=== PATIENT | female | born 1940 | race Caucasian/White ===

== ENCOUNTER 2018-01-07 20:11 | Emergency (ER) | payer MEDICARE, BC ==
[2018-01-07 20:35] LABS: Bilirubin Negative (Negative); Blood, Urine Negative (Negative); Clarity CLEAR (Clear); Glucose, Urine (Dipstick) Negative (Negative); Leukocyte Negative (Negative); Nitrite Negative (Negative); Protein, Urine (Dipstick) Negative (Neg-Trace); Specific Gravity, Urine 1.009 (1.002-1.036); pH, Urine 7.5 (5.0-9.0)
[2018-01-07 22:02] LABS: #Eosinphils 0.2 thou/uL (0.0-0.7); #Lymphocytes 2.5 thou/uL (1.20-3.40); #Monocytes 0.8 thou/uL (0.11-0.59); #Neutrophils 6.6 thou/uL (1.40-6.50); %Basophils 0.5 % (0.0-1.0); %Eosinophils 1.7 % (0.0-10.0); %Lymphocytes 24.5 % (21.0-51.0); %Neutrophils 65.4 % (42.0-75.0); Hemoglobin 14.2 g/dL (12.0-16.0); Mean Corpuscular HGB CONC 34.7 g/dL (32.0-36.0); Mean Corpuscular Hemoglobin 29.7 pg (27.0-31.0); Mean Corpuscular Volume 85.6 fl (81.0-99.0); Mean Platelet Volume 7.1 fL (7.4-10.4); Platelet Count 95 thou/uL (130-400); Red Blood Cell (RBC) Count 4.78 mill/uL (4.20-5.40)
[2018-01-07 22:23] LABS: ALT (SGPT) 10 U/L (8-55); AST (SGOT) 19 U/L (5-34); Albumin 4.4 g/dL (3.4-4.8); Alkaline Phosphatase 56 U/L (40-150); Anion Gap 15 mmol/L (10-20); BUN (Urea Nitrogen) 12 mg/dL (9.8-20.1); Bilirubin, Total 0.6 mg/dL (0.2-1.2); Calc. Creatinine Clearance 0 mL/min (70-130); Carbon Dioxide 24 mmol/L (23-31); Chloride 97 mmol/L (98-107); Estimated GFR-MDRD 79; Globulin 2.6 g/dL (2.4-3.5); Glucose 113 mg/dL (83-110); Lipase 38 U/L (8-78); Potassium 3.5 mmol/L (3.5-5.1); Sodium 132 mmol/L (136-145)
--- NOTE | 2018-01-07 22:55 | CT ---
CT ABDOMEN AND PELVIS WITHOUT CONTRAST: 01/07/18 Multiple axial tomograms obtained through the abdomen and pelvis without IV enhancement. INDICATIONS: Left abdominal pain. Lung bases are clear of infiltrate. There is a calcified granuloma in the anterior right lung base. The liver, spleen, and pancreas unremarkable. Adrenal glands unremarkable. Review of the kidneys shows no evidence of hydronephrosis. The ureters are normal caliber. There is a small calcification adjacent to the mid left ureter. This is felt to lie outside the ureters. There is no evidence of ureteral dilatation. There is an adjacent larger calcification measuring 1.2 cm abu tting the left medial psoas muscle probably a calcified lymph node. Small bowel loops appear of normal caliber. Scattered stool throughout the colon. There is diverticul osis of the left colon and sigmoid. There appears to be luminal narrowing and mural thickening in thi s region of the sigmoid and there may be some early inflammatory change which could represent early d iverticulitis. There is no evidence of extraluminal fluid or abscess. Aorta is normal caliber. IMPRESSION: 1. No evidence of urinary tract calculus. A tiny 2 mm calcification adjacent to the mid left ure ter is felt to lie outside the ureter. If there is hematuria or clinical signs suggesting ureteral ca lculus, this could be further evaluated with IVP. 2. Diffuse sigmoid diverticulosis. There are findings that may represent early diverticulitis. N o significant inflammatory process and no evidence of fluid or abscess collection. POS: [facility]
== END 2018-01-07 23:26 | disposition home or self-care (01) ==
LOC: ERS 20:11
DX: K57.32 Diverticulitis of large intestine without perforation or abscess without bleeding (principal); E11.9 Type 2 diabetes mellitus without complications; E78.5 Hyperlipidemia, unspecified; I10 Essential (primary) hypertension; Z79.899 Other long term (current) drug therapy; Z79.84 Long term (current) use of oral hypoglycemic drugs
CPT/HCPCS: 36415; 74176; 80053; 81003; 83690; 85025

== ENCOUNTER 2018-03-03 13:32 | Outpatient (CLI) | payer MEDICARE, BC | END 2018-03-03 13:33 | disposition home or self-care (01) | LOC: BICMAMMO 13:32 | PROVIDERS: ATTEND Obstetrics & Gynecology | DX: Z12.31 Encounter for screening mammogram for malignant neoplasm of breast (principal) | CPT/HCPCS: 77063; 77067 ==

== ENCOUNTER 2019-04-01 13:41 | Observation (INO) | payer MEDICARE, BC ==
[2019-04-01 14:35] LABS: #Basophils 0.1 thou/uL (0.0-0.2); #Eosinphils 0.1 thou/uL (0.0-0.7); #Monocytes 0.5 thou/uL (0.11-0.59); #Neutrophils 4.7 thou/uL (1.40-6.50); %Basophils 0.9 % (0.0-1.0); %Eosinophils 1.3 % (0.0-10.0); %Lymphocytes 27.1 % (21.0-51.0); %Monocytes 7.2 % (0.0-10.0); %Neutrophils 63.5 % (42.0-75.0); Hemoglobin 13.8 g/dL (12.0-16.0); Mean Corpuscular HGB CONC 34.2 g/dL (32.0-36.0); Mean Corpuscular Hemoglobin 29.9 pg (27.0-31.0); Mean Corpuscular Volume 87.5 fL (78.0-98.0); Mean Platelet Volume 5.8 fL (7.4-10.4); Platelet Count 398 thou/uL (130-400); RBC Distribution Width 12.1 % (11.5-14.5); Red Blood Cell (RBC) Count 4.62 mill/uL (4.20-5.40); White Blood Cell (WBC) Count 7.4 thou/uL (4.8-10.8)
--- NOTE | 2019-04-01 14:53 | RAD ---
Exam: Chest one view HISTORY:Patient is not feeling well. Comparison: 08/29/2013 FINDINGS: Cardiac silhouette: Normal Aorta: Atherosclerosis of the aortic knob Pulmonary vessels: Normal Costophrenic angles: Clear LUNGS: No masses or consolidation. Pneumothorax: None Osseous abnormalities: None IMPRESSION: No acute cardiopulmonary process. Atherosclerosis.
[2019-04-01 15:01] LABS: ALT (SGPT) 9 U/L (8-55); AST (SGOT) 19 U/L (5-34); Albumin 4.2 g/dL (3.4-4.8); Alkaline Phosphatase 60 U/L (40-150); Anion Gap 15 mmol/L (10-20); BUN (Urea Nitrogen) 12 mg/dL (9.8-20.1); Bilirubin, Total 0.3 mg/dL (0.2-1.2); Calc. Creatinine Clearance 0 mL/min (70-130); Calcium 9.3 mg/dL (7.8-10.44); Carbon Dioxide 22 mmol/L (23-31); Chloride 101 mmol/L (98-107); Estimated GFR-MDRD 78; Globulin 2.2 g/dL (2.4-3.5); Glucose 142 mg/dL (83-110); Lipase 33 U/L (8-78); Potassium 3.4 mmol/L (3.5-5.1); Protein, Total 6.4 g/dL (6.0-8.3); Sodium 135 mmol/L (136-145)
[2019-04-01] MEDS ORDERED: Aspirin Chewable 81 MG TAB ONE (15:01)
[2019-04-01] MEDS ORDERED: Nitroglycerin 0.4 MG TAB (25 Tab Bottle) PO PRN (17:36)
[2019-04-01] MEDS ORDERED: Ondansetron PF 4 MG/2 ML Vial IVP PRN (17:39)
[2019-04-01] MEDS ORDERED: Acetaminophen 500 MG TAB PO PRN (17:39)
[2019-04-01] MEDS ORDERED: diphenhydrAMINE 25 MG CAP PO PRN (17:39)
[2019-04-01] MEDS ORDERED: hydrALAZINE 20 MG/ML VIAL SLOW IVP PRN (17:39)
[2019-04-01] MEDS ORDERED: Ondansetron ODT 4 MG TAB PO PRN (17:39)
[2019-04-01 18:03] VITALS: BMI 27.7
[2019-04-01 18:30] LABS: Troponin I Less than 0.010 ng/mL (< 0.028)
[2019-04-01] MEDS: Sodium Chloride 0.9% 1,000 ML IV SCH (20:09)
[2019-04-01] MEDS ORDERED: Atorvastatin Calcium 10 MG TAB PO SCH (21:00)
[2019-04-01] MEDS ORDERED: Temazepam 15 MG CAP PO SCH (21:00)
--- NOTE | 2019-04-01 21:28 | HP ---
CHIEF COMPLAINT: Chest pain. HISTORY OF PRESENT ILLNESS: Ms. Zamarripa is a very pleasant 78-year-old female with past medical history significant for type 2 diabetes mellitus, hypertension, hyperlipidemia, who presented to the hospital today after experiencing an episode of chest pressure. The patient states that over the last several weeks she has had some worsening fatigue. She has felt generally unwell and unsteady on her feet, although she has had no focal symptoms. She has had no dizziness or lightheadedness. No specific weakness of any kind. The patient states that she has had some back trouble over the past month or so that occurs after she weedeats the yard outside. She has seen a chiropractor for this, but the pain reoccurs when she does yard work. In any case, today she had some chest pressure that worried her. She had no associated nausea or vomiting. No associated shortness of breath, dizziness, or diaphoresis. Given her risk factor, she thought it was a good idea to come to the hospital to get checked out. On arrival to the emergency department, workup has included a troponin which was negative. She did have an EKG, which revealed a new left bundle branch block when compared to an EKG from about 5 years ago. The patient is currently chest pain free and is chatting with her best friend and family members. The chest pain did relieve on its own. The patient has not formally seen a spring repairer helper hand before. Many years ago, she did have a stress test in Dr. Marquis's office. She recently saw him in the office with her best friend who is a patient of his, and wanted to get established with a spring repairer helper hand and he did give her his card to make an appointment. She has had no recent cardiac workup or any history of coronary artery disease. REVIEW OF SYSTEMS: The patient states that she has had no recent illnesses or fevers. No blood in her urine or stool. She does have a problem with chronic constipation, but did have a bowel movement yesterday. Otherwise, 12-point review of systems performed is negative except that stated above. PAST MEDICAL HISTORY: Type 2 diabetes mellitus, GERD, diverticulosis, irritable bowel syndrome, hyperlipidemia, hypertension, history of staph infection and complications after childbirth back in 1964. PAST SURGICAL HISTORY: Cholecystectomy, hysterectomy, and left oophorectomy. She did have exploratory surgery in 1964 after childbirth. History of breast biopsy 1998, history of colonoscopy which was reportedly negative in 2017. SOCIAL HISTORY: The patient has no history of smoking. She does not drink alcohol or use illicit drugs. ALLERGIES: NO KNOWN DRUG ALLERGIES. HOME MEDICATIONS: 1. Calcium with vitamin D3 supplement one tablet daily. 2. Fenofibrate 145 mg tablet one tablet p.o. daily. 3. Christi Allergy 60 mg tablet one tablet daily. 4. Daily multivitamin. 5. Nifedipine 60 mg tablet one tablet p.o. daily. 6. Nexium 40 mg capsule one capsule daily. 7. Metformin 500 mg tablet one tablet daily. 8. Restoril 30 mg tablet one tablet p.o. at bedtime. 9. Valsartan/hydrochlorothiazide 320/25 one tablet p.o. daily. PHYSICAL EXAMINATION: VITAL SIGNS: Blood pressure 149/83, pulse is 77, respirations 18, O2 saturation is 96% on room air, temperature 98.1. GENERAL: This is a well-appearing female, resting comfortably in bed, in no acute distress. HEENT: Head is atraumatic and normocephalic. Mucous membranes are moist. NECK: Trachea is midline. Supple. No lymphadenopathy. No JVD. CV: S1 and S2. Regular rate and rhythm. No appreciable murmurs, rubs, or gallops. LUNGS: Regular respiratory rate and pattern. Clear to auscultation bilaterally. ABDOMEN: Positive bowel sounds. Soft, nontender. EXTREMITIES: No edema. Warm, well perfused. NEUROLOGIC: Cranial nerves 2 through 12 are grossly intact. The patient is nonfocal. SKIN: Warm and dry. No rashes or lesions. LABORATORY DATA: White blood cell count 7.4, hemoglobin 13.8, hematocrit 40.4, platelet count is 398. Sodium 135, potassium 3.4, creatinine 0.72, BUN is 12, calcium 9.3, AST 19, ALT 9, alkaline phosphatase today 60. Troponin is negative x2. Lipase is 33. ASSESSMENT: 1. Chest pain, atypical, in a patient with multiple risk factors, acute coronary syndrome ruled out. 2. New left bundle-branch block/abnormal EKG. 3. Type 2 diabetes mellitus. 4. Hypertension. 5. Hyperlipidemia. 6. Musculoskeletal back pain. 7. History of diverticulosis/diverticulitis, stable. 8. Gastroesophageal reflux disease. PLAN: Given the patient's risk factors and new finding of left bundle branch block, we will further risk stratify this patient with a nuclear stress test to be performed tomorrow. The patient states that her diabetes has been well under control and last A1c was 6.2%, but we will obtain an A1c tomorrow as well as a fasting lipid panel. We will also obtain a thyroid panel given her complaints of fatigue over the last month or so. Certainly, if stress test shows any abnormality, we will consult Cardiology for further recommendations. We will start statin therapy in this patient as she is a diabetic, as well as a daily aspirin. Further recommendations will be based on findings of noninvasive testing. Job ID: [id number]
[2019-04-01 21:37] LABS: Troponin I Less than 0.010 ng/mL (< 0.028)
[2019-04-01] MEDS: Temazepam 15 MG CAP PO SCH (23:02)
[2019-04-02 05:33] LABS: Hemoglobin A1c 5.8 % (4.0-6.0)
[2019-04-02 05:52] LABS: Cardiac Risk 3.2 (Less than 4.5)
[2019-04-02 06:07] LABS: Free T4 (Free Thyroxine) 0.97 ng/dL (0.70-1.48); Thyroid Stimulating Hormone 1.9748 uIU/mL (0.35-4.94)
[2019-04-02] MEDS: Sodium Chloride 0.9% 1,000 ML IV SCH ×2 (07:42→17:34)
[2019-04-02] MEDS: Aspirin 81 mg Enteric Coated Tablet PO SCH (07:54)
[2019-04-02] MEDS: Valsartan 80 MG TAB PO SCH (07:55)
[2019-04-02] MEDS: Hydrochlorothiazide 25 MG TAB PO SCH (07:55)
[2019-04-02] MEDS ORDERED: ADENOSINE 60 MG/20 ML VIAL ONE (09:58)
[2019-04-02] MEDS ORDERED: metFORMIN 500 MG TAB PO SCH (12:00)
--- NOTE | 2019-04-02 12:04 | NM ---
Radionucleotide stress and rest myocardial perfusion scan with CT attenuation correction and SPECT im aging Left ventricular wall motion evaluation and ejection fraction HISTORY: Chest pain. FINDINGS: Adenosine protocol. Heterogeneous uptake of radiotracer throughout the left ventricular joie cardium. Area, moderate-sized decreased uptake involving the apex. No significant change from stress to rest. QGS analysis of gated SPECT images shows no focal wall motion abnormalities, including the apex. Ejec tion fraction calculated at 53%. IMPRESSION: Probably normal myocardial perfusion scan. Possible area of scar at the apex. No evidence of ischemia. Borderline ejection fraction 53%.
--- NOTE | 2019-04-02 15:42 | CT ---
CT PULMONARY ANGIOGRAM WITH IV CONTRAST AND 3D POSTPROCESSING: Date: 04/02/19 HISTORY: Chest pain. FINDINGS: There is good contrast opacification of the pulmonary arterial vasculature without filling defects to suggest pulmonary embolism. There are vascular calcifications without evidence of aneurysmal dilatat ion of the thoracic aorta. A 3 mm peripheral lung nodule is stable since 08/29/13. No pleural or oksana cardial effusions are seen. No pneumothoraces or focal areas of consolidation are identified. The 5 m m peripheral nodule in the right lower lobe is stable. The 5 mm peripheral nodule in the right upper lobe is also stable. There are degenerative changes in the spine. There is a calcified granuloma in t he inferior aspect of the right middle lobe. Upper abdominal tomograms demonstrate postop changes of cholecystectomy and calcified granulomas in the liver and spleen. IMPRESSION: No CT evidence of pulmonary embolism. POS: [facility]
[2019-04-02] MEDS ORDERED: Communication Order-Pharmacy FS SCH (17:00)
[2019-04-02] MEDS ORDERED: Iopamidol 370 76% 100 ML VIAL ONE (17:05)
--- NOTE | 2019-04-02 17:38 | PDOC.HOSPP ---
- Subjective Encounter Date: 04/02/19 Encounter Time: 17:37 Subjective: Pt seen for followup re: chest pain. Feels better. - Objective Vital Signs & Weight: Vital Signs (12 hours) Temp Pulse Resp BP Pulse Ox 04/02/19 16:00 97.9 F 61 21 H 178/77 H 97 04/02/19 11:31 98.4 F 70 16 163/72 H 99 04/02/19 07:48 97.6 F 60 18 171/74 H 96 Weight Weight 132 lb 11.2 oz I&O: 04/01/19 04/02/19 04/03/19 06:59 06:59 06:59 Intake Total 240 900 Output Total 1300 Balance -1060 900 Result Diagrams: 04/01/19 14:27 04/01/19 14:27 Additional Labs: Labs and MARs reviewed by me. EKG Reviewed by me: Yes (Tele: NSR) ROS - Review of Systems Respiratory: denies: cough, shortness of breath, SOB with excertion, pleuritic pain, wheezing Cardiovascular: denies: chest pain, palpitations, orthopnea, paroxysmal noc. dyspnea, edema, light headedness - Medication Medications: Active Medications Generic Name Dose Route Start Last Admin Trade Name Freq PRN Reason Stop Dose Admin Acetaminophen 1,000 mg 04/01/19 17:39 04/02/19 15:47 Tylenol PO 1,000 mg Q6H PRN Administration Mild Pain (1-3) Aspirin 81 mg 04/02/19 09:00 04/02/19 07:54 Ecotrin PO 81 mg DAILY LEANNA Administration Hydrochlorothiazide 25 mg 04/02/19 09:00 04/02/19 07:55 Hydrochlorothiazide PO 25 mg DAILY LEANNA Administration Sodium Chloride 1,000 mls @ 75 mls/hr 04/01/19 17:45 04/02/19 17:34 Normal Saline 0.9% IV 1,000 mls .[id number] LEANNA Administration Metformin HCl 500 mg 04/02/19 12:00 04/02/19 11:39 Glucophage PO Not Given 1200 LEANNA Pantoprazole Sodium 40 mg 04/01/19 21:00 04/01/19 20:46 Protonix PO 40 mg HS LEANNA Administration Temazepam 30 mg 04/01/19 22:30 04/01/19 23:02 Restoril PO 30 mg 2230 LEANNA Administration Valsartan 320 mg 04/02/19 09:00 04/02/19 07:55 Diovan PO 320 mg DAILY LEANNA Administration - Exam NAD Eye: anicteric sclera ENT: moist mucosa Neck: supple Heart: RRR Respiratory: CTAB Gastrointestinal: soft Extremities: no cyanosis Skin: normal turgor Neurological: no weakness Musculoskeletal: normal tone Psychiatric: normal affect, normal behavior Hosp A/P (1) Chest pain Code(s): R07.9 - CHEST PAIN, UNSPECIFIED Status: Acute (2) DM2 (diabetes mellitus, type 2) Status: Chronic (3) HTN (hypertension) Code(s): I10 - ESSENTIAL (PRIMARY) HYPERTENSION Status: Chronic (4) GERD (gastroesophageal reflux disease) Code(s): K21.9 - GASTRO-ESOPHAGEAL REFLUX DISEASE WITHOUT ESOPHAGITIS Status: Chronic - Plan Probable scar on stress test. No pulmonary embolism on CTA chest. Stable pulmonary nodules. Plan for cath noted, hold discharge. Continue PRN IV hydralazine for blood pressure spikes. GERD stable.
[2019-04-02] MEDS ORDERED: Polyethylene Glycol 3350 17 GM Packet PO PRN (20:31)
[2019-04-02] MEDS ORDERED: NIFEdipine XL 60 MG TAB PO SCH (21:00)
[2019-04-02] MEDS ORDERED: Atorvastatin Calcium 10 MG TAB PO SCH (21:00)
[2019-04-02] MEDS: Temazepam 15 MG CAP PO SCH (22:00)
--- NOTE | 2019-04-02 23:57 | CON ---
DATE OF CONSULTATION: HISTORY: Candie Zamarripa is a pleasant 78-year-old white female without known cardiac problems. Over the last several months, she has had episodes of lower, mid, and upper back discomfort that seemed to be related to weedeating outside. She then yesterday after episcopalian had some tightness and pressure in the mid part of her chest that was not associated with exertion. This lasted approximately 5 minutes, and she decided to come to the emergency room for evaluation of this. She does have a new left bundle-branch block compared to an EKG five years ago. Cardiac enzymes were negative. PAST MEDICAL HISTORY: Hypertension, diabetes, GERD, diverticulosis (no history of GI bleeding), irritable bowel syndrome, history of staph infection and complications after child . PAST SURGICAL HISTORY: Cholecystectomy, hysterectomy, and left oophorectomy. She had exploratory laparotomy in 1964 after childbirth. History of breast biopsy. HOME MEDICATIONS: 1. Fenofibrate 145 daily. 2. Calcium with D3 daily. 3. Christi 60 mg daily. 4. Multivitamin daily. 5. Nifedipine 60 mg daily. 6. Nexium 40 daily. 7. Metformin 500 mg daily. 8. Restoril 30 mg at bedtime. 9. Valsartan/hydrochlorothiazide 320/25 daily. ALLERGIES: NONE. SOCIAL HISTORY: She does not smoke or drink. REVIEW OF SYSTEMS: Unremarkable. PHYSICAL EXAMINATION: VITAL SIGNS: Blood pressure 178/77 and pulse 61. HEENT: PERRL. NECK: Supple. CHEST: Clear. CARDIAC: S1 and S2 normal without any S3, S4, or murmurs. Carotid upstrokes normal without bruits. ABDOMEN: Normal bowel sounds without tenderness or organomegaly. EXTREMITIES: Revealed no clubbing, cyanosis, or edema. NEUROLOGICAL: Grossly intact. SKIN: Warm and dry. LABORATORY DATA: EKG reveals normal sinus rhythm and new left bundle-branch block. Cardiac enzymes are unremarkable. CBC is normal. D-dimer 0.66. Sodium 135, potassium 3.4, chloride 101, carbon dioxide 22, BUN 12, and creatinine 0.72. Cholesterol 155, triglycerides 132, HDL 49, and LDL 80. T4 and TSH are normal. Chest CTA today revealed no evidence of pulmonary emboli. IMPRESSION: 1. Cardiolite scan with fixed apical defect with some evidence of ischemia in a patient with new left bundle-branch block and a 5-minute episode of chest pressure. 2. Back pain, which I do not feel is related to a cardiac cause. 3. Hypertension. 4. Hypercholesterolemia. Triglycerides under good control. Her LDL is 80 and a diabetic. 5. Diabetes. PLAN: Situation discussed with patient and her family. It was recommended she undergo cardiac catheterization. Risks of this have been discussed including , myocardial infarction, dye reaction, vascular injury, CVA, transfusion, limb loss, renal loss, etc. Risks of intervention with PTCA and stent placement were discussed including , myocardial infarction, emergent CABG, restenosis, stent thrombosis, vessel perforation, etc. She understands and agrees to proceed. She has no history of gastrointestinal bleeding or stroke. She has no upcoming surgeries and overall it is recommended that a drug-eluting stent be placed if required. Job ID: [id number] JHONY
--- NOTE | 2019-04-03 02:53 | DIS ---
DATE OF ADMISSION: 04/01/2019 DATE OF DISCHARGE: 04/02/2019 PRIMARY CARE PROVIDER: Vern Olsen MD DISCHARGE DIAGNOSES: 1. Chest pain. 2. Chest pain most likely secondary to musculoskeletal etiology. 3. Stable pulmonary nodules. CONDITION OF PATIENT ON THE DAY OF DISCHARGE: Stable. I assessed Ms. Zamarripa on the day of discharge. She denies any chest pain or shortness of breath. Vital signs are stable. S1 and S2 are heard, regular. Lungs are clear to auscultation bilaterally. DISCHARGE MEDICATIONS: The patient is advised to resume her metformin on the evening of March 27, 2019. Otherwise, no change was made to her pre-admission home medications as dictated by Ms. Fritz in her history and physical note dated April 01, 2019. HOSPITAL COURSE: Ms. Zamarripa is a pleasant 78-year-old lady, who was admitted to [facility] on April 01, 2019, for chest pain. She underwent a nuclear stress test, which showed possible area of scar at the apex, probably normal myocardial perfusion scan, and no evidence of ischemia. Left ventricular ejection fraction was 53%. She had an elevated D-dimer and therefore also had a CT angiogram of the chest, which did not show any CT evidence of pulmonary embolism. She had peripheral lung nodules, which were stable compared to CT scan from August 29, 2013. She is being discharged home in a stable condition. During this hospitalization, she had triglycerides 132, cholesterol 155, LDL cholesterol 80, and HDL cholesterol 49. TSH and free T4 were normal. Hemoglobin A1c was 5.8. Many thanks for allowing me to participate in your patient's care. Please feel free to contact me with any questions or concerns. DISCHARGE DESTINATION: Home. FOLLOW UP APPOINTMENTS: Patient is advised to follow up with primary care provider in 3-5 days. Job ID: [id number] MTDD
[2019-04-03 04:33] LABS: #Basophils 0.1 thou/uL (0.0-0.2); #Eosinphils 0.2 thou/uL (0.0-0.7); #Monocytes 0.5 thou/uL (0.11-0.59); #Neutrophils 3.5 thou/uL (1.40-6.50); %Basophils 0.8 % (0.0-1.0); %Eosinophils 2.5 % (0.0-10.0); %Lymphocytes 31.8 % (21.0-51.0); %Monocytes 8.7 % (0.0-10.0); %Neutrophils 56.2 % (42.0-75.0); Hemoglobin 12.9 g/dL (12.0-16.0); Mean Corpuscular HGB CONC 34.5 g/dL (32.0-36.0); Mean Corpuscular Hemoglobin 30.4 pg (27.0-31.0); Mean Platelet Volume 5.8 fL (7.4-10.4); Platelet Count 319 thou/uL (130-400); RBC Distribution Width 12.1 % (11.5-14.5); Red Blood Cell (RBC) Count 4.25 mill/uL (4.20-5.40); White Blood Cell (WBC) Count 6.2 thou/uL (4.8-10.8)
[2019-04-03 04:53] LABS: Anion Gap 10 mmol/L (10-20); BUN (Urea Nitrogen) 7 mg/dL (9.8-20.1); Calc. Creatinine Clearance 64 mL/min (70-130); Carbon Dioxide 27 mmol/L (23-31); Chloride 104 mmol/L (98-107); Estimated GFR-MDRD 84; Glucose 99 mg/dL (83-110); Potassium 3.7 mmol/L (3.5-5.1); Sodium 137 mmol/L (136-145)
[2019-04-03] MEDS: Aspirin 81 mg Enteric Coated Tablet PO SCH (05:54)
[2019-04-03] MEDS: Valsartan 80 MG TAB PO SCH (05:54)
[2019-04-03] MEDS ORDERED: Sodium Chloride 0.9% 1,000 ML IV SCH ×2 (06:00→09:13)
[2019-04-03] MEDS ORDERED: Lidocaine 1% (PF) 30 ML VIAL ONE (06:44)
[2019-04-03] MEDS ORDERED: Heparin 10,000 UNITS/1 ML VIAL ONE (06:44)
[2019-04-03] MEDS ORDERED: Fentanyl 100 MCG/2 ML VIAL ONE (08:29)
[2019-04-03] MEDS ORDERED: Midazolam HCl 2 mg/2 ml Vial ONE (08:29)
[2019-04-03] MEDS: Hydrochlorothiazide 25 MG TAB PO SCH (08:48)
[2019-04-03] MEDS ORDERED: Protamine Sulfate 50 MG/5 ML VIAL ONE (08:50)
[2019-04-03] MEDS ORDERED: Non-Formulary Item 1 EACH (Nifedipine 60 MG) PO SCH (09:00)
[2019-04-03] MEDS ORDERED: Sodium Chloride 0.9% 200 ML IV PRN (09:12)
[2019-04-03] MEDS ORDERED: Acetaminophen/Codeine 30-300mg Tablet PO PRN ×2 (09:12)
[2019-04-03] MEDS ORDERED: Nitroglycerin 0.4 MG TAB (25 Tab Bottle) SL PRN (09:12)
[2019-04-03] MEDS ORDERED: Iopamidol 370 76% 100 ML VIAL ONE (10:04)
[2019-04-03] MEDS ORDERED: Iopamidol 370 76% 50 ML VIAL FS ONE (10:04)
[2019-04-03 15:52] VITALS: BP 142/67; TEMP 98.2
== END 2019-04-03 19:14 | disposition home or self-care (01) ==
LOC: ERS 13:41 → 2SW 17:43
PROVIDERS: ADMIT Internal Medicine; ATTEND Internal Medicine
PROC: 4A023N7 Measurement of Cardiac Sampling and Pressure, Left Heart, Percutaneous Approach (ICD-10-PCS; principal; 2019-04-03)
PROC: B2051ZZ Plain Radiography of Left Heart using Low Osmolar Contrast (ICD-10-PCS; 2019-04-03)
DX: R07.89 Other chest pain (principal); I25.10 Atherosclerotic heart disease of native coronary artery without angina pectoris; I10 Essential (primary) hypertension; E11.9 Type 2 diabetes mellitus without complications; E78.5 Hyperlipidemia, unspecified; I44.7 Left bundle-branch block, unspecified; K21.9 Gastro-esophageal reflux disease without esophagitis; M54.9 Dorsalgia, unspecified; R91.1 Solitary pulmonary nodule; Z79.84 Long term (current) use of oral hypoglycemic drugs; Z79.899 Other long term (current) drug therapy
CPT/HCPCS: 71045; 71275; 78452; 80048; 80053; 80061; 83036; 83690; 84439; 84443; 84484 ×2; 85025 ×2; 85347; 85379; 93005; 93017; 93458; 96360; 96361 ×3; 99285; A9500; C1769; G0378 ×4; 36415; 99152; J0153; J1644; J2001; J2250; J2720; J3010; Q9967

== ENCOUNTER 2019-05-01 11:49 | Outpatient (CLI) | payer MEDICARE, BC ==
--- NOTE | 2019-05-01 13:11 | MMO ---
Bilateral MAMMO Bilat Screen [facility]. CLINICAL HISTORY: Patient is 78 years old and is seen for screening. The patient has no family history of breast cancer. The patient has no personal history of cancer. The patient has a history of left needle biopsy more than 10 years ago - benign. VIEWS: The views performed were: bilateral craniocaudal with tomosynthesis and bilateral mediolateral oblique with tomosynthesis. FILMS COMPARED: The present examination has been compared to a prior imaging study performed at [facility] on 03/03/2018. This study has been interpreted with the assistance of computer-aided detection. MAMMOGRAM FINDINGS: There are scattered fibroglandular densities. There are stable benign appearing calcifications seen in both breasts. There are no suspicious masses, suspicious calcifications, or new areas of architectural distortion. IMPRESSION: THERE IS NO MAMMOGRAPHIC EVIDENCE OF MALIGNANCY. A ROUTINE FOLLOW-UP MAMMOGRAM IN 1 YEAR IS RECOMMENDED. THE RESULTS OF THIS EXAM WERE SENT TO THE PATIENT. ACR BI-RADS Category 2 - Benign finding MAMMOGRAPHY NOTE: 1. A negative mammogram report should not delay a biopsy if a dominant of clinically suspicious mass is present. 2. Approximately 10% to 15% of breast cancers are not detected by mammography. 3. Adenosis and dense breasts may obscure an underlying neoplasm. Reported by: GAYATHRI ORELLANA MD Electonically Signed: [id number]
== END 2019-05-01 11:50 | disposition home or self-care (01) ==
LOC: BICMAMMO 11:49
PROVIDERS: ATTEND Obstetrics & Gynecology
DX: Z12.31 Encounter for screening mammogram for malignant neoplasm of breast (principal); Z91.89 Other specified personal risk factors, not elsewhere classified
CPT/HCPCS: 77063; 77067

== ENCOUNTER 2019-07-27 12:47 | Emergency (ER) | payer MEDICARE, BC ==
[2019-07-27] MEDS ORDERED: Lidocaine 5% Patch TD SCH (14:00)
[2019-07-28] MEDS ORDERED: Lidocaine Patch Removal 1 EACH TOP SCH (02:00)
== END 2019-07-27 14:07 | disposition home or self-care (01) ==
LOC: ERS 12:47
DX: M62.830 Muscle spasm of back (principal); E11.9 Type 2 diabetes mellitus without complications; E78.5 Hyperlipidemia, unspecified; E78.00 Pure hypercholesterolemia, unspecified; I10 Essential (primary) hypertension; I25.10 Atherosclerotic heart disease of native coronary artery without angina pectoris; Z79.899 Other long term (current) drug therapy; Z79.82 Long term (current) use of aspirin; Z79.84 Long term (current) use of oral hypoglycemic drugs
CPT/HCPCS: 99283

== ENCOUNTER 2019-08-27 14:30 | Observation (INO) | payer MEDICARE, BC ==
[~2019-08-27 14:30] MED LIST: ISOVUE-370 76%-LOCM 1 ML ONE
[2019-08-27 15:22] LABS: #Lymphocytes 0.9 thou/uL (1.20-3.40); #Monocytes 0.3 thou/uL (0.11-0.59); #Neutrophils 8.6 thou/uL (1.40-6.50); %Basophils 0.4 % (0.0-1.0); %Eosinophils 0.3 % (0.0-10.0); %Lymphocytes 9.3 % (21.0-51.0); %Monocytes 2.5 % (0.0-10.0); %Neutrophils 87.4 % (42.0-75.0); Mean Corpuscular HGB CONC 33.5 g/dL (32.0-36.0); Mean Corpuscular Hemoglobin 29.1 pg (27.0-31.0); Mean Corpuscular Volume 86.8 fL (78.0-98.0); Mean Platelet Volume 6.2 fL (7.4-10.4); Platelet Count 257 thou/uL (130-400); RBC Distribution Width 12.2 % (11.5-14.5); Red Blood Cell (RBC) Count 5.16 mill/uL (4.20-5.40); White Blood Cell (WBC) Count 9.9 thou/uL (4.8-10.8)
--- NOTE | 2019-08-27 15:31 | CT ---
CT Brain WO Con: 08/27/2019 3:07 PM CLINICAL HISTORY: History of fall with nausea and dizziness. IMAGING TECHNIQUE: Multiple CT images were obtained of the brain without IV contrast. COMPARISON: None. FINDINGS: Brain: No acute infarct or hemorrhage is evident. No midline shift. Ventricles: Normal. No hydrocephalus. Skull: Intact. Visualized Paranasal sinuses: Clear. Mastoid air cells:Clear. Extracranial soft tissues:Normal. IMPRESSION: No acute intracranial abnormality.
--- NOTE | 2019-08-27 15:32 | CT ---
CT Cervical Spine WO Con Indication: Fall with neck injury COMPARISON: None. FINDINGS: Fracture: None. Spinal alignment: No acute malalignment. Craniocervical junction: Within normal limits. Vertebral body heights: Maintained. Cervical spine degenerative change: Mild multilevel spondylosis Lung apices: Clear. IMPRESSION: No acute osseous abnormality.
[2019-08-27 15:45] LABS: ALT (SGPT) 10 U/L (8-55); AST (SGOT) 18 U/L (5-34); Albumin 4.2 g/dL (3.4-4.8); Alkaline Phosphatase 60 U/L (40-110); Anion Gap 15 mmol/L (10-20); BUN (Urea Nitrogen) 9 mg/dL (9.8-20.1); Bilirubin, Total 0.9 mg/dL (0.2-1.2); CK (CPK) 76 U/L (29-168); Calc. Creatinine Clearance 0 mL/min (70-130); Calcium 8.6 mg/dL (7.8-10.44); Carbon Dioxide 22 mmol/L (23-31); Chloride 100 mmol/L (98-107); Estimated GFR-MDRD Greater than 90; Globulin 2.2 g/dL (2.4-3.5); Glucose 134 mg/dL (83-110); Potassium 3.6 mmol/L (3.5-5.1); Protein, Total 6.4 g/dL (6.0-8.3); Sodium 133 mmol/L (136-145)
[2019-08-27] MEDS ORDERED: Meclizine HCl 25 MG TAB ONE (16:38)
[2019-08-27 17:24] LABS: Bilirubin Negative (Negative); Blood, Urine Negative (Negative); Clarity Clear (Clear); Glucose, Urine (Dipstick) Normal (Negative); Leukocyte Negative Leu/uL (Negative); Nitrite Negative (Negative); Protein, Urine (Dipstick) Negative (Neg-Trace); Urobilinogen Normal mg/dL (Less than 2)
[2019-08-27] MEDS ORDERED: Acetaminophen 325 MG TAB PO PRN (18:49)
[2019-08-27] MEDS ORDERED: Ondansetron ODT 4 MG TAB PO PRN (18:49)
[2019-08-27] MEDS ORDERED: Acetaminophen 650 MG Suppository PR PRN (18:49)
[2019-08-27] MEDS ORDERED: Ondansetron PF 4 MG/2 ML Vial IVP PRN (18:49)
[2019-08-27] MEDS ORDERED: Dextrose 5% in Water 1,000 ML IV PRN (18:51)
[2019-08-27] MEDS ORDERED: HumaLOG 300 UNITS/3 ML VIAL SC PRN ×2 (18:51)
[2019-08-27] MEDS ORDERED: Insulin Regular 300 UNITS/3 ML VIAL SC PRN (18:51)
[2019-08-27] MEDS ORDERED: Dextrose 50% Abboject 50 ML SYRINGE SLOW IVP PRN (18:51)
[2019-08-27] MEDS ORDERED: Sodium Chloride 0.9% 1,000 ML IV SCH (19:00)
[2019-08-27 19:08] LABS: Troponin I Less than 0.010 ng/mL (< 0.028)
--- NOTE | 2019-08-27 19:23 | RAD ---
EXAM: Chest PA and lateral: HISTORY: Recent fall. COMPARISON: 04/01/2019 FINDINGS: Heart: Normal cardiac silhouette Aorta: Atherosclerosis of the aortic knob Pulmonary vessels: Normal Costophrenic angles: Costophrenic angles are clear. Lungs: No masses or consolidation. Chronic changes. Calcified granuloma in the right lower lobe. Pneumothorax: No pneumothorax Osseous structures: No osseous abnormalities IMPRESSION: 1. Chronic lung parenchymal changes 2. Atherosclerosis.
--- NOTE | 2019-08-27 19:28 | CT ---
INDICATION: Stroke COMPARISON: None TECHNIQUE: CT angiogram of the head and neck are performed in the axial plane. Three-dimensional refo rmatted images are submitted for interpretation. FINDINGS: CTA OF THE HEAD WITH AND WITHOUT CONTRAST: POSTCONTRAST CT OF BRAIN: Pathologic enhancement: No pathologic enhancement the brain. Postcontrast soft tissue neck CT: Sinuses: Adequate aeration. Orbits: Bilateral ocular lens implants are appropriately located. Both globes are intact. Retrobulbar fat is preserved. Symmetric attenuation the optic nerves and ocular rectus muscles. Salivary glands:Symmetric attenuation Thyroid gland: Hypodensities, incompletely . Lymph nodes: No evidence of lymphadenopathy by size criteria. Paraspinal muscles: Symmetric attenuation of the sternocleidomastoid muscles. Appropriate attenuation of the paraspinal muscles. Cervical spine:Vertebral body height is maintained. No fracture. No significant central canal stenosi s or significant neural foraminal narrowing. Limited evaluation by technique. Upper mediastinum and lung apices: Chronic lung parenchymal changes. Visualized mediastinum is unrema rkable CTA OF THE NECK WITH CONTRAST: Aorta: Appropriate enhancement and luminal diameter. Atherosclerosis of the aortic knob. Right carotid artery: Appropriate enhancement and luminal diameter of the innominate artery origin. T he common carotid artery, carotid bifurcation and internal carotid artery have appropriate enhancement and luminal diameter. Mild atherosclerosis of the carotid bifurcation and proximal commander internal affairs al carotid artery. No evidence of stenosis, based upon NASCET criteria. Left carotid: Appropriate enhancement and luminal diameter the origin of the left carotid artery. The common carotid artery, carotid bifurcation and internal carotid artery have appropriate enhancement and luminal diameter. Mild atherosclerosis of the carotid bifurcation and proximal commander internal affairs al carotid artery. No significant stenosis based upon NASCET criteria. Subclavian arteries:Patent and symmetric Vertebral arteries:Patent throughout their course in the neck and essentially codominant. CTA OF THE BRAIN: Intracranial internal carotid arteries:Appropriate enhancement and luminal diameter Anterior circulation: Symmetric and appropriate enhancement/luminal diameter of the A1 segments, A2 s egments, M1 segments and proximal MCA branches Intracranial vertebral arteries: Appropriate enhancement and luminal diameter. Bilateral PICA artery origins are unremarkable Posterior circulation: Both vertebral arteries supply a normal caliber basilar artery. Appropriate en hancement and luminal diameter. Appropriate enhancement and luminal diameter bilateral P1 segments. IMPRESSION: 1. No hemodynamically significant stenosis, occlusion or aneurysmal formation. 2. Additional incidental findings as above. Transcribed Date/Time: 08/27/2019 7:53 PM
--- NOTE | 2019-08-27 19:59 | HP ---
TIME OF ASSESSMENT: 1800 CHIEF COMPLAINT: Dizziness. HISTORY OF PRESENT ILLNESS: Ms. Candie Zamarripa is a pleasant 78-year-old woman who presents with complaints of dizziness that came on suddenly this afternoon when she got up to use the bathroom. The patient states she fell on the floor, but is not entirely sure if she lost any consciousness and if she did, she believes it was for a very brief period of time. She states she hit her face on the floor. Denies having any preceding symptoms such as chest pain, shortness of breath, lightheadedness, or dizziness. The patient states that since then, she has continued to feel a "spinning sensation" whenever she turns her head toward the right. She recently got up to go to the restroom while in the ER and states if she turns her head towards the right, she would feel that same spinning sensation. Denies any other complaints. Did not experience any extremity numbness or weakness. No facial numbness or weakness and no speech disturbances. No visual changes. Overall, she has felt well in recent days except for mild sinus type pressure and postnasal drip. Denies any cough or hemoptysis. Denies any sore throat or runny nose. Denies any lower leg swelling or calf tenderness. The patient had a stress test on April 02, 2019, showing probably normal myocardial perfusion scan with possible area of scar at the apex and no evidence of ischemia. EF at that time was borderline at 53%. REVIEW OF SYSTEMS: The patient states that she suffers from constipation which tends to exacerbate her diverticulosis, therefore, has recently been started on MiraLAX to help keep her stools soft. Over the last couple days, she has had frequent stools, but they have not been watery or bloody. Denies any urinary symptoms. No recent fevers, chills, or sweats. All other review of systems are negative. PAST MEDICAL HISTORY: 1. Type 2 diabetes mellitus. 2. Diverticulosis/diverticulitis. 3. Irritable bowel syndrome. 4. Hyperlipidemia. 5. Hypertension. 6. Coronary artery disease. PAST SURGICAL HISTORY: 1. Breast biopsy in 1998. 2. Exploratory surgery in 1965 after childbirth. 3. Cholecystectomy. 4. Hysterectomy. 5. Left oophorectomy. 6. Status post heart cath done 04/01/2019. Showed mild coronary artery disease with mildly impaired ventricular function. She has 50% stenosis of the proximal circumferential artery and 20% stenosis of the proximal LAD. 30% stenosis of mid RCA and 20% stenosis of distal RCA. The patient advised medical management. SOCIAL HISTORY: The patient lives at home alone. Denies any tobacco use, alcohol consumption, or illicit drug use. ALLERGIES: No known drug allergies. CURRENT MEDICATIONS: 1. Norvasc. 2. Aspirin. 3. Esomeprazole. 4. Metformin. 5. Robaxin. 6. Toprol XL. 7. Multivitamin. 8. Miralax. 9. Restasis. 10. Temazepam. 11. Lipitor. 12. Christi. 13. Antivert. 14. Diovan. PHYSICAL EXAMINATION: GENERAL: The patient appears well developed, well nourished, and is in no acute distress. VITAL SIGNS: Temperature 98.3, pulse 67, blood pressure 169/95, respirations 16 , O2 saturation 94% on room air. HEENT: Normocephalic and atraumatic. Pupils are equal, round, and reactive to light. Sclerae without icterus. Oropharynx is clear. NECK: Supple without lymphadenopathy. LUNGS: Clear to auscultation bilaterally without wheezes, rales, or rhonchi. CARDIAC: Regular rate and rhythm without audible murmurs, rubs, or gallops. ABDOMEN: Soft, nontender, nondistended. Normoactive bowel sounds present. No guarding or rigidity. No renal angle tenderness. EXTREMITIES: No lower leg swelling or edema. NEUROLOGIC: Alert and oriented x3. SKIN: Warm and dry. EMERGENCY DEPARTMENT COURSE: In the emergency department, the patient underwent an EKG that showed normal sinus rhythm with a heart rate of 76. No ST changes or T-wave abnormalities present. She had CT imaging of the head showing no acute intracranial abnormality. She had CT imaging of the cervical spine as well demonstrating no acute osseous abnormality. LABORATORY STUDIES: Showed white count of 9.9, hemoglobin 15, hematocrit 44.8, platelets 257, neutrophils 87.4%. Sodium 133, potassium 3.6, BUN 9, creatinine 0.57, GFR greater than 90, glucose 134, calcium 8.6. LFTs unremarkable. Alkaline phosphatase 60. CK 76, troponin 0.028. Total protein 6.4, albumin 4.2. Urinalysis was unremarkable. She had a CT of head and neck done. IMPRESSION AND PLAN: Ms. Zamarripa is a very pleasant 78-year-old woman who has been referred for management of the following. 1. Syncope/dizziness. The patient with a fall and normal CT head and cervical spine imaging. She continues to have dizziness when turning her head towards the right. In the ED, she was given meclizine which we will continue. CTA head and neck. We will continue cardiac monitoring. We will continue to trend troponins. Obtain echo. The patient has had increased stool output due to MiraLAX. We will hold MiraLAX and add on magnesium. We will give gentle hydration. 2. Hypertension. Monitor blood pressure and resume home medications once verified. 3. Diabetes mellitus. Monitor blood glucose. Initiate insulin sliding scale. Resume home medications once verified. 4. Hyperlipidemia. Resume home medications once verified. 5. Gastroesophageal reflux disease. Patient on Nexium, which we will restart. 6. Deep venous thrombosis prophylaxis. Mechanical SCDs. PT/OT consulted. 7. Code status is full. Surrogate decision maker is her daughter, Jenna Diaz. Case discussed with attending who agrees upon care as described above. Job ID: [id number] MTDD
[2019-08-27 21:07] VITALS: BMI 26.2
[2019-08-27] MEDS ORDERED: Melatonin 3 MG TAB PO PRN (22:10)
[2019-08-27] MEDS: Meclizine HCl 12.5 MG TAB PO SCH (22:46)
[2019-08-28 04:40] LABS: #Basophils 0.1 thou/uL (0.0-0.2); #Eosinphils 0.1 thou/uL (0.0-0.7); #Monocytes 0.8 thou/uL (0.11-0.59); #Neutrophils 5.1 thou/uL (1.40-6.50); %Basophils 0.8 % (0.0-1.0); %Eosinophils 1.6 % (0.0-10.0); %Lymphocytes 24.7 % (21.0-51.0); %Monocytes 9.3 % (0.0-10.0); %Neutrophils 63.6 % (42.0-75.0); Hemoglobin 13.9 g/dL (12.0-16.0); Mean Corpuscular HGB CONC 33.2 g/dL (32.0-36.0); Mean Corpuscular Volume 87.3 fL (78.0-98.0); Mean Platelet Volume 6.4 fL (7.4-10.4); Platelet Count 252 thou/uL (130-400); RBC Distribution Width 12.2 % (11.5-14.5)
[2019-08-28 05:04] LABS: Anion Gap 10 mmol/L (10-20); BUN (Urea Nitrogen) 10 mg/dL (9.8-20.1); Calc. Creatinine Clearance 59 mL/min (70-130); Calcium 8.7 mg/dL (7.8-10.44); Carbon Dioxide 28 mmol/L (23-31); Cardiac Risk 2.7 (Less than 4.5); Chloride 104 mmol/L (98-107); Cholesterol 112 mg/dl (< 200 Desired); Estimated GFR-MDRD 80; Glucose 99 mg/dL (83-110); HDL Cholesterol 41 mg/dL (>60 Neg Risk); LDL Cholesterol, Calculated 34 mg/dL; Potassium 3.3 mmol/L (3.5-5.1); Sodium 139 mmol/L (136-145); Triglycerides 187 mg/dL (Less than 150)
[2019-08-28] MEDS ORDERED: Aspirin 81 mg Enteric Coated Tablet PO SCH (09:00)
[2019-08-28] MEDS ORDERED: Multivitamin W/ Minerals 1 TAB PO SCH (09:00)
[2019-08-28] MEDS ORDERED: cycloSPORINE 0.05% Ophthalmic Droperette EA EYE SCH (09:00)
[2019-08-28] MEDS ORDERED: Valsartan 80 MG TAB PO SCH (09:00)
[2019-08-28] MEDS: Meclizine HCl 12.5 MG TAB PO SCH ×2 (09:16→14:55)
[2019-08-28 15:31] VITALS: BP 146/67; TEMP 97.8
[2019-08-28] MEDS ORDERED: Amlodipine 5 MG TAB PO SCH (17:00)
[2019-08-28] MEDS ORDERED: metFORMIN 500 MG TAB PO SCH (17:00)
[2019-08-28] MEDS ORDERED: Atorvastatin Calcium 10 MG TAB PO SCH (21:00)
--- NOTE | 2019-08-29 02:22 | DIS ---
DATE OF ADMISSION: 08/27/2019 DATE OF DISCHARGE: 08/28/2019 DISCHARGE DIAGNOSES: 1. Syncope likely multifactorial including vertigo and dehydration. 2. Vertigo, likely positional in conjunction with dehydration. 3. Hypertension, stable. 4. Diabetes mellitus type 2, stable. 5. Hyperlipidemia. CONSULTATIONS: None. PERTINENT LABORATORY AND X-RAY FINDINGS: Sodium ranged between 133-139. Magnesium level 1.6. Troponin I negative x3. BNP 133. TSH 0.54. Total cholesterol 112, triglycerides 187, HDL 41, and LDL 34. CBC within normal limits. Urinalysis negative. Urine culture dated 08/27/[address] IMAGIN. CT of the brain without contrast dated 08/27/2019 showed no acute intracranial process. 2. CT of the cervical spine dated 08/27/2019, showed no acute process. 3. CT angiogram of the [facility] [place] dated 08/27/2019, showed no hemodynamically focal stenosis. 4. Portable chest x-ray dated 08/27/2019 showed chronic changes without acute process. 5. A 2D transthoracic echocardiogram dated 08/28/2019 pending at the time of this dictation. HOSPITAL COURSE: The patient was observed on the telemetry unit after initially presenting status post brief syncopal episode with associated dizziness and vertigo. The patient underwent extensive evaluation including neuroimaging showing no acute process. Metabolic screening was essentially unremarkable and the patient received general supportive management with IV fluids for hydration and meclizine for suspected positional vertigo. The patient clinically stabilized with supportive management and no acute process was identified. Vital signs have remained stable. The patient clinically ready for discharge on 08/28/2019. I have examined the patient at the time of discharge and discussed followup instructions. The patient verbalized understanding and agreement, ready for discharge on 08/28/2019. DISCHARGE MEDICATIONS: 1. Norvasc 5 mg p.o. daily. 2. Aspirin 81 mg p.o. daily. 3. Calcium with vitamin D3 one tablet p.o. daily. 4. Nexium 40 mg p.o. daily. 5. Metformin 500 mg p.o. at bedtime. 6. Robaxin 500 mg p.o. at bedtime p.r.n. 7. Toprol-XL 50 mg p.o. daily. 8. Multivitamin 1 tablet p.o. daily. 9. MiraLAX 17 g p.o. daily. 10. Restasis ophthalmic drops one drop to each eye daily. 11. Temazepam 30 mg p.o. at bedtime p.r.n. 12. Lipitor 10 mg p.o. at bedtime. 13. Meclizine 12.5 mg p.o. t.i.d. p.r.n. vertigo. 14. Diovan 320 mg p.o. daily. FOLLOWUP: The patient may follow up with her primary care provider, Dr. Vern Olsen. CONDITION ON DISCHARGE: Stable. ACTIVITY: Ad-isma. DIET: ADA and heart healthy. CODE STATUS: Full. DISPOSITION: To home, 08/28/2019. Job ID: [id number]
== END 2019-08-28 17:16 | disposition home or self-care (01) ==
LOC: ERS 14:30 → 2SW 18:35
PROVIDERS: ADMIT Emergency Medicine; ATTEND Emergency Medicine
DX: R55 Syncope and collapse (principal); R42 Dizziness and giddiness; E86.0 Dehydration; I10 Essential (primary) hypertension; K58.9 Irritable bowel syndrome, unspecified; I25.10 Atherosclerotic heart disease of native coronary artery without angina pectoris; E11.9 Type 2 diabetes mellitus without complications; E78.5 Hyperlipidemia, unspecified; Z79.82 Long term (current) use of aspirin; Z79.899 Other long term (current) drug therapy; Z79.84 Long term (current) use of oral hypoglycemic drugs; K21.9 Gastro-esophageal reflux disease without esophagitis
CPT/HCPCS: 70450; 70496; 70498; 71046; 72125; 80048; 80061; 81003; 82550; 82962 ×2; 83735; 83880; 84484 ×2; 85025; 87086; 93005; 93306; 96360; 96361; 97139 ×4; 99284; G0378 ×3; 36415; 36416; 80053; 84443; J8597; Q9966

== ENCOUNTER 2019-10-16 08:12 | Outpatient (CLI) | payer MEDICARE, BC ==
--- NOTE | 2019-10-16 09:48 | CT ---
CT ABDOMEN AND PELVIS WITH AND WITHOUT IV CONTRAST: HISTORY: Abdominal pain. FINDINGS: There are calcified granulomas in the visualized portions of the chest, liver, and spleen. The patie nt is post cholecystectomy. No hepatic mass or abnormal biliary ductal dilatation is seen. The panc reas, adrenal glands, and kidneys are normal. No calculi are seen in the kidneys, ureters, or the ur inary bladder. No hydroureteral nephrosis is seen on either side. No free air, free fluid, or lymphadenopathy is noted in the abdomen or pelvis. There are vascular ca lcifications without evidence of aneurysmal dilatation of the abdominal aorta. There are degenerativ e changes in the spine. The small bowel loops are not abnormally dilated. There is colonic divertic ulosis. There is thickening of the wall of the sigmoid colon. No significant pericolonic inflammato ry changes are seen. No abnormally loculated fluid collection is identified to suggest abscess forma tion. The patient is post hysterectomy. IMPRESSION: 1. Old granulomatous disease. 2. Colonic diverticulosis with findings suggestive of early sigmoid diverticulitis versus mass. Fur ther evaluation with colonoscopy is recommended. POS: [facility]
[2019-10-16] MEDS ORDERED: Iopamidol-370 76% 500 ML 1 ML ONE (14:28)
== END 2019-10-16 08:13 | disposition home or self-care (01) ==
LOC: BICCT 08:12
PROVIDERS: ATTEND Internal Medicine
DX: K21.9 Gastro-esophageal reflux disease without esophagitis (principal); R10.84 Generalized abdominal pain; K57.30 Diverticulosis of large intestine without perforation or abscess without bleeding
CPT/HCPCS: 74178; 82565; Q9967

== ENCOUNTER 2019-11-26 12:08 | Outpatient (CLI) | payer MEDICARE, BC ==
--- NOTE | 2019-11-26 13:28 | ULT ---
THYROID ULTRASOUND: Date: 11/26/2019 COMPARISON: None. HISTORY: Evaluate thyroid gland, history of abnormal CT examination. TECHNIQUE: Multiplanar Dawson scale sonographic imaging of the thyroid gland obtained. FINDINGS: The thyroid isthmus measures 2.0 mm in AP dimension. The right lobe measures 1.8 x 3.7 x 1.9 cm. The left lobe measures 1.1 x 3.2 x 1.4 cm. Punctate calcification noted in the inferior aspect of the lef t lobe measuring 4.0 x 3.0 x 4.0 mm. There is a complex solid and cystic nodule within the upper aspect of the left lobe measuring 9.0 x 6 .0 x 10.0 mm. There is a solid isoechoic nodule within the inferior aspect of the right lobe measuring 5.0 x 2.0 x 5.0 mm. There is a complex solid and cystic nodule within the mid portion of the right lobe measuring 1.5 x 1 .4 x 1.3 cm. IMPRESSION: TI-RADS Category 4 - Moderately suspicious. The largest nodule within the right lobe measures up to 1 .5 cm and thus, fine needle aspiration advised. The other nodules should be further assessed with a 1 year follow-up. POS: [facility]
== END 2019-11-26 12:09 | disposition home or self-care (01) ==
LOC: BICULT 12:08
PROVIDERS: ATTEND Internal Medicine Cardiovascular Disease
DX: E04.2 Nontoxic multinodular goiter (principal)
CPT/HCPCS: 76536

== ENCOUNTER 2020-04-25 10:46 | Emergency (ER) | payer MEDICARE, BC ==
[2020-04-25] MEDS ORDERED: traMADol HCl 50 MG TAB ONE (11:51)
[2020-04-25] MEDS ORDERED: Ketorolac Tromethamine 30 MG/ML VIAL ONE (11:51)
[2020-04-25 12:03] LABS: #Monocytes 0.6 thou/uL (0.11-0.59); #Neutrophils 8.3 thou/uL (1.40-6.50); %Basophils 0.2 % (0.0-1.0); %Eosinophils 0.1 % (0.0-10.0); %Lymphocytes 10.3 % (21.0-51.0); %Monocytes 6.1 % (0.0-10.0); %Neutrophils 83.2 % (42.0-75.0); Hemoglobin 14.6 g/dL (12.0-16.0); Mean Corpuscular HGB CONC 33.7 g/dL (32.0-36.0); Mean Corpuscular Volume 88.9 fL (78.0-98.0); Mean Platelet Volume 6.2 fL (7.4-10.4); Platelet Count 244 thou/uL (130-400); RBC Distribution Width 12.3 % (11.5-14.5); Red Blood Cell (RBC) Count 4.88 mill/uL (4.20-5.40)
[2020-04-25 12:28] LABS: Anion Gap 15 mmol/L (10-20); BUN (Urea Nitrogen) 10 mg/dL (9.8-20.1); Calc. Creatinine Clearance 0 mL/min (70-130); Calcium 8.8 mg/dL (7.8-10.44); Carbon Dioxide 22 mmol/L (23-31); Chloride 100 mmol/L (98-107); Estimated GFR-MDRD 85; Glucose 105 mg/dL (83-110); Potassium 3.5 mmol/L (3.5-5.1); Sodium 133 mmol/L (136-145)
[2020-04-25 15:17] LABS: Bilirubin Negative (Negative); Blood, Urine Negative (Negative); Clarity Clear (Clear); Glucose, Urine (Dipstick) Normal (Negative); Ketone, Urine Negative (Negative); Leukocyte 75 Leu/uL (Negative); Nitrite Negative (Negative); Protein, Urine (Dipstick) 10 mg/dL (Neg-Trace); Specific Gravity, Urine 1.018 (1.002-1.036); Urobilinogen Normal mg/dL (Less than 2)
[2020-04-25 15:27] LABS: Bacteria/HPF None Seen HPF (None Seen); Mucous/LPF 1+ LPF (<2+)
== END 2020-04-25 15:45 | disposition home or self-care (01) ==
LOC: ERS 10:46
DX: M54.5 Low back pain (principal); G89.29 Other chronic pain; E11.9 Type 2 diabetes mellitus without complications; E78.5 Hyperlipidemia, unspecified; E78.00 Pure hypercholesterolemia, unspecified; I10 Essential (primary) hypertension; I25.10 Atherosclerotic heart disease of native coronary artery without angina pectoris; Z79.82 Long term (current) use of aspirin; Z79.84 Long term (current) use of oral hypoglycemic drugs; Z79.899 Other long term (current) drug therapy
CPT/HCPCS: 80048; 81003; 81015; 85025; 94760; 96361; 96374; J1885

== ENCOUNTER 2020-06-03 12:26 | Outpatient (CLI) | payer MEDICARE, BC ==
--- NOTE | 2020-06-03 13:41 | MRI ---
Exam: Thoracic spine MRI without contrast HISTORY: Thoracic radiculopathy. Pain. COMPARISON: None. FINDINGS: Appropriate T1 marrow signal intensity of the thoracic vertebra. Thoracic spine vertebral body height s are maintained. No fracture. No significant STIR hyperintensity to suggest vertebral body edema or ligamentous injury. Appropriate signal intensity does paraspinal muscles, solid organs, lung parenchyma and mediastinum. The thoracic cord has a normal size and signal intensity. No cord expansion. No cord malacia. Conus m edullaris terminates at the upper aspect of L1. Throughout the thoracic spine, neural foramina are patent. T1-T2 through T4-T5: No significant central canal stenosis. T5-T6, T6-T7: There is disc desiccation with broad-based disc bulge. Mild central canal stenosis. T7-T8, T8-T9: Disc desiccation with mild central canal stenosis. T9-T10, T10-T11, T11-T12 and T12-L1: No significant central canal stenosis. Minimal broad-based disc bulge at T11-T12 and T12-L1. Right peroneal sleeve cyst at the T11-T12 neural foramen. Spondylolisthesis: 1.8 mm of anterolisthesis of T3 upon T4. IMPRESSION: 1. Grade 1 anterolisthesis of T3 upon T4. 2. Multilevel degenerative changes of the thoracic spine. Transcribed Date/Time: 06/03/2020 2:18 PM
--- NOTE | 2020-06-03 13:57 | MRI ---
EXAM: MRI Lumbar Spine WO Con PROVIDED CLINICAL HISTORY: Back pain COMPARISON: None FINDINGS: 5 lumbar vertebral bodies are assumed. There is grade 1 anterolisthesis of L3 on L4 and L4 on L5. The re is slight retrolisthesis of L1 on L2. Vertebral body heights are preserved. No focal concerning regional marrow signal abnormality is evident. The visualized extraspinal soft tissues appear unremar kable. The conus medullaris is normal in signal and terminates at an appropriate level. T12-L1: Broad-based disc bulge with mild central canal stenosis. No significant foraminal narrowing apparent. L1-L2: Disc space height loss and endplate degenerative change with broad disc bulge and bilateral facet art hritis. There is mild central canal stenosis and moderate right subarticular narrowing. There is moderate right foraminal narrowing. There is no significant left foraminal narrowing apparent. L2-L3: Disc space height loss and endplate degenerative change. Broad disc bulge eccentric in the left kirit inal region. Bilateral facet arthritis. Mild right subarticular narrowing. Mild central canal stenosis. Mild right foraminal narrowing. Post foraminal narrowing on the left due to the eccentricit y of the disc bulge with displacement of the exited left L2 nerve root. L3-L4: Broad disc bulge and bilateral facet arthritis. No significant central canal or foraminal narrowing a pparent. L4-L5: Broad disc bulge and bilateral facet arthritis. Severe bilateral subarticular narrowing, greater on t he left. Moderate central canal stenosis. No significant right foraminal narrowing. Moderate left foraminal narrowing. L5-S1: Bilateral facet arthrosis without significant central canal or foraminal narrowing apparent. IMPRESSION: Multilevel lumbar disc and facet degenerative change producing central canal, subarticular and forami nal narrowing as described.
== END 2020-06-03 12:27 | disposition home or self-care (01) ==
LOC: BICMRI 12:26
PROVIDERS: ATTEND Specialist
DX: M43.16 Spondylolisthesis, lumbar region (principal); M51.16 Intervertebral disc disorders with radiculopathy, lumbar region; M47.26 Other spondylosis with radiculopathy, lumbar region; M47.24 Other spondylosis with radiculopathy, thoracic region; M43.14 Spondylolisthesis, thoracic region; M48.061 Spinal stenosis, lumbar region without neurogenic claudication
CPT/HCPCS: 72146; 72148

== ENCOUNTER 2021-02-02 15:33 | Outpatient (CLI) | payer MEDICARE, BC | END 2021-02-02 15:34 | disposition home or self-care (01) | LOC: BICULT 15:33 | PROVIDERS: ATTEND Otolaryngology Plastic Surgery within the Head & Neck | DX: E04.2 Nontoxic multinodular goiter (principal); E07.89 Other specified disorders of thyroid | CPT/HCPCS: 76536 ==

== ENCOUNTER 2022-02-23 11:59 | Outpatient (CLI) | payer MEDICARE, BC | END 2022-02-23 12:00 | disposition home or self-care (01) | LOC: BICULT 11:59 | PROVIDERS: ATTEND Otolaryngology Plastic Surgery within the Head & Neck | DX: E04.2 Nontoxic multinodular goiter (principal) | CPT/HCPCS: 76536 ==

== ENCOUNTER 2022-07-15 11:22 | Day surgery (SDC) | payer MEDICARE, BC ==
[2022-07-14 12:03] VITALS: BMI 25.9
[2022-07-15 12:30] LABS: #Basophils 0.1 thou/uL (0.0-0.2); #Eosinphils 0.1 thou/uL (0.0-0.7); #Lymphocytes 1.9 thou/uL (1.20-3.40); #Monocytes 0.5 thou/uL (0.11-0.59); %Basophils 0.7 % (0.0-1.0); %Eosinophils 0.8 % (0.0-10.0); %Lymphocytes 25.6 % (21.0-51.0); %Neutrophils 65.9 % (42.0-75.0); Hemoglobin 15.2 g/dL (12.0-16.0); Mean Corpuscular HGB CONC 33.8 g/dL (32.0-36.0); Mean Corpuscular Hemoglobin 30.5 pg (27.0-31.0); Mean Corpuscular Volume 90.1 fl (78.0-98.0); Mean Platelet Volume 6.2 fL (7.4-10.4); Platelet Count 283 10x3/uL (130-400); RBC Distribution Width 12.6 % (11.5-14.5); Red Blood Cell (RBC) Count 4.98 mill/uL (4.20-5.40); White Blood Cell (WBC) Count 7.6 10x3/uL (4.8-10.8)
[2022-07-15 12:49] LABS: Anion Gap 13 mmol/L (10-20); BUN (Urea Nitrogen) 12 mg/dL (9.8-20.1); Calc. Creatinine Clearance 57 mL/min (70-130); Carbon Dioxide 25 mmol/L (23-31); Chloride 105 mmol/L (98-107); Estimated GFR 87; Glucose 125 mg/dL (83-110); Potassium 3.9 mmol/L (3.5-5.1); Sodium 139 mmol/L (136-145)
[2022-07-15] MEDS ORDERED: Bupivacaine HCl 0.5%/Epinephrine 1:200,000/PF 30 ml Vial ONE (14:06)
[2022-07-15] MEDS ORDERED: fentaNYL PF 100 MCG/2 ML SYRINGE ONE (14:17)
[2022-07-15] MEDS ORDERED: Sodium Chloride 0.9% 100 ML ONE (14:26)
[2022-07-15] MEDS ORDERED: CEFAZOLIN 2 GM VIAL ONE (14:26)
[2022-07-15] MEDS ORDERED: Ketorolac Tromethamine 30 MG/ML VIAL ONE ×2 (14:37→15:46)
[2022-07-15] MEDS ORDERED: Phenylephrine 10 MG/ML VIAL ONE (14:37)
== END 2022-07-15 16:29 | disposition home or self-care (01) ==
LOC: SDC 11:22
PROVIDERS: ATTEND Specialist
PROC: 0JH70DZ Insertion of Multiple Array Stimulator Generator into Back Subcutaneous Tissue and Fascia, Open Approach (ICD-10-PCS; principal; 2022-07-15)
PROC: 00HU3MZ Insertion of Neurostimulator Lead into Spinal Canal, Percutaneous Approach (ICD-10-PCS; 2022-07-15)
DX: G89.4 Chronic pain syndrome (principal); M51.16 Intervertebral disc disorders with radiculopathy, lumbar region; M47.24 Other spondylosis with radiculopathy, thoracic region; M43.16 Spondylolisthesis, lumbar region; M48.04 Spinal stenosis, thoracic region; M43.14 Spondylolisthesis, thoracic region; Z79.82 Long term (current) use of aspirin; Z79.84 Long term (current) use of oral hypoglycemic drugs; Z79.899 Other long term (current) drug therapy
CPT/HCPCS: 63650 ×2; 63685; 72020; 80048; 85025; 93005; C1713; C1778; C1787; C1820; L8689; 93010; J1885; J2370; J3490

== ENCOUNTER 2023-04-27 09:09 | Outpatient (CLI) | payer MEDICARE, BC | END 2023-04-27 09:10 | disposition home or self-care (01) | LOC: ULT 09:09 | PROVIDERS: ATTEND Nurse Practitioner Family | DX: M54.14 Radiculopathy, thoracic region (principal); G89.4 Chronic pain syndrome; E11.65 Type 2 diabetes mellitus with hyperglycemia; R10.12 Left upper quadrant pain; Z87.19 Personal history of other diseases of the digestive system | CPT/HCPCS: 76700 ==

== ENCOUNTER 2023-07-15 15:21 | Outpatient (CLI) | payer MEDICARE, BC | END 2023-07-15 15:22 | disposition home or self-care (01) | LOC: BICULT 15:21 | PROVIDERS: ATTEND Otolaryngology Plastic Surgery within the Head & Neck | DX: E04.2 Nontoxic multinodular goiter (principal) | CPT/HCPCS: 76536 ==

== ENCOUNTER 2024-01-31 10:08 | Outpatient (CLI) | payer MEDICARE | END 2024-01-31 10:09 | disposition home or self-care (01) | LOC: BICMRI 10:08 → MRI 10:09 | PROVIDERS: ATTEND Nurse Practitioner Family | DX: M51.14 Intervertebral disc disorders with radiculopathy, thoracic region (principal); M48.04 Spinal stenosis, thoracic region | CPT/HCPCS: 72146 ==

== ENCOUNTER 2024-05-31 09:59 | Outpatient (CLI) | payer MEDICARE | END 2024-05-31 10:00 | disposition home or self-care (01) | LOC: BICMAMMO 09:59 | PROVIDERS: ATTEND Nurse Practitioner Family | DX: Z12.31 Encounter for screening mammogram for malignant neoplasm of breast (principal); Z78.0 Asymptomatic menopausal state; M81.0 Age-related osteoporosis without current pathological fracture; Z91.89 Other specified personal risk factors, not elsewhere classified | CPT/HCPCS: 77063; 77067; 77080 ==